=== PATIENT | male | born 1985 | race Hispanic/Latino ===

== ENCOUNTER → 2023-12-14 | Outpatient (REF) | payer BC, SELFPAY | LOC: DHSLP | PROVIDERS: ATTENDING PHYSICIAN Internal Medicine; FAMILY PHYSICIAN Internal Medicine | DX: G47.33 Obstructive sleep apnea (adult) (pediatric) (principal); R09.02 Hypoxemia | CPT/HCPCS: 95800 ==

== ENCOUNTER → 2025-01-02 14:07 | Outpatient (REF) | payer BC, SELFPAY | LOC: HWRAD 14:07 | DX: R59.9 Enlarged lymph nodes, unspecified (principal) | CPT/HCPCS: 76536 ==